=== PATIENT | female | born 1970 | race Caucasian/White ===

== ENCOUNTER 2020-03-13 11:20 | Outpatient (CLI) | payer BC, SELFPAY ==
--- NOTE | 2020-03-13 11:50 | ECG_ITS ---
Measurements Intervals Dozier Rate: 74 P: 57 NE: 145 QRS: 53 QRSD: 92 T: 37 QT: 375 QTc: 417 SINUS RHYTHM WITH SINUS ARRHYTHMIA POSSIBLE LEFT ATRIAL ENLARGEMENT [-0.1mV P WAVE IN V1/V2] INTERPRETATION BASED ON A DEFAULT AGE OF 40 YEARS No previous ECG available for comparison Electronically Signed On 03-13-2020 16:36:59 CDT by Konstantin Arroyo M.D. [id number]
[2020-03-13 11:52] LABS: Basophils % 0.2 %; Eosinophils % 0.5 %; Hematocrit 40.7 % (37.0-47.0); Hemoglobin 13.7 g/dL (11.5-15.3); Lymphocytes # 1.4 10^3/uL (0.8-4.8); Lymphocytes % 24.3 %; Mean Corpuscular HGB Conc 33.7 g/dL (30.0-36.0); Mean Corpuscular Hemoglobin 29.8 pg (28.0-34.0); Mean Corpuscular Volume 88.7 fL (81-99); Mean Platelet Volume 11.1 fL (7.4-10.4); Monocytes # 0.4 10^3/uL (0.2-0.9); Monocytes % 6.5 %; Neutrophils % 68.5 %; Nucleated Red Blood Cells % 0 %; Platelet Count 204 10^3/cmm (130-400); Red Blood Count 4.59 10^6/uL (4.1-5.3); Red Cell Distribution Width 12.9 % (12.1-15.1); White Blood Count 5.8 10^3/uL (4.0-10.0)
[2020-03-13 12:10] LABS: Blood Urea Nitrogen 15 mg/dL (6-20); Calcium 10.4 mg/dL (8.5-10.5); Carbon Dioxide 31 mmol/L (22-29); Chloride 99 mmol/L (98-107); Glucose 101 mg/dL (65-115); Osmolality Calculated 286 mOsm/kg (285-295); Sodium 140 mmol/L (136-145)
== END 2020-03-13 11:21 | disposition home or self-care (01) ==
LOC: RT 11:23
PROVIDERS: PCP Family Medicine; Visit Provider Specialist
DX: Z01.89 Encounter for other specified special examinations (principal)
CPT/HCPCS: 36415; 80048; 85025; 93005

== ENCOUNTER → 2020-11-21 08:50 | Outpatient (BNVA) | payer OTHER, SELFPAY | PROVIDERS: PCP Family Medicine; Visit Provider Obstetrics & Gynecology | DX: Z01.419 Encounter for gynecological examination (general) (routine) without abnormal findings (principal); N32.81 Overactive bladder; N83.201 Unspecified ovarian cyst, right side | CPT/HCPCS: 80061; 83001; 83036; 84315 ==

== ENCOUNTER 2020-12-05 13:38 | Outpatient (CLI) | payer OTHER, SELFPAY ==
--- NOTE | 2020-12-05 14:00 | MM_ITS ---
WS: [id number] BILATERAL DIGITAL SCREENING MAMMOGRAPHY WITH CAD CLINICAL INFORMATION: Z12.39 - Encounter for other screening for malignant neoplasm of breast HISTORY: Screening mammogram. No current complaints. COMPARISON: TECHNIQUE: Bilateral CC and MLO views. FINDINGS: The breasts are composed of heterogeneous fibroglandular density tissue, which can limit the detectio n of small underlying mass lesions. New ovoid lesion posterior depth right breast near the 1100-12:00 position. Recommend further evaluation with spot diagnostic mammography and ultrasound. Left breast is unremarkable and unchanged. MM/[place] [id number] IMPRESSION: BI-RADS: 0-Incomplete: Need additional imaging evaluation FOLLOW UP: Need Additional Imaging RECOMMEND RIGHT DIAGNOSTIC MAMMOGRAPHY AND ULTRASOUND.
== END 2020-12-05 13:39 | disposition home or self-care (01) ==
LOC: RADSHAW 13:40
PROVIDERS: PCP Family Medicine; Visit Provider Obstetrics & Gynecology
DX: Z12.31 Encounter for screening mammogram for malignant neoplasm of breast (principal); N64.89 Other specified disorders of breast
CPT/HCPCS: 77067

== ENCOUNTER 2021-01-15 09:11 | Outpatient (CLI) | payer OTHER, SELFPAY ==
--- NOTE | 2021-01-15 09:18 | US_ITS ---
WS: [id number] RIGHT DIGITAL MAMMOGRAPHY WITH CAD CLINICAL INFORMATION: Right breast ovoid lesion HISTORY: COMPARISON: None. TECHNIQUE: 4 views of the right breast were obtained. FINDINGS: The right breast is composed of heterogeneous fibroglandular density tissue, which can limit the dete ction of small underlying mass lesions. Again seen is the 6 mm ovoid lesion posterior depth right breast near the 12:00 position. This persis ts on spot compression views. Ultrasound is pending. ULTRASOUND BREAST RIGHT TECHNIQUE: Ultrasound right breast focused area of concern. CLINICAL INFORMATION: Right breast ovoid lesion COMPARISON: None. FINDINGS: Ultrasound right breast at the 11:00 position 1 cm from the nipple. Small hypoechoic lesion with thro ugh-transmission appears partially cystic. This measures 5.2 x 7.3 x 5.0 mm. This is probably benign and recommend 6 month follow-up US/US breast RT limited* [id number] IMPRESSION: BI-RADS: 3-Probably Benign FOLLOW UP: 6 Month Follow-up RECOMMEND 6 MONTH FOLLOW-UP RIGHT BREAST WITH RIGHT DIAGNOSTIC MAMMOGRAPHY AND ULTRASOUND.
--- NOTE | 2021-01-15 09:30 | MM_ITS ---
WS: [id number] RIGHT DIGITAL MAMMOGRAPHY WITH CAD CLINICAL INFORMATION: Right breast ovoid lesion HISTORY: COMPARISON: None. TECHNIQUE: 4 views of the right breast were obtained. FINDINGS: The right breast is composed of heterogeneous fibroglandular density tissue, which can limit the dete ction of small underlying mass lesions. Again seen is the 6 mm ovoid lesion posterior depth right breast near the 12:00 position. This persis ts on spot compression views. Ultrasound is pending. ULTRASOUND BREAST RIGHT TECHNIQUE: Ultrasound right breast focused area of concern. CLINICAL INFORMATION: Right breast ovoid lesion COMPARISON: None. FINDINGS: Ultrasound right breast at the 11:00 position 1 cm from the nipple. Small hypoechoic lesion with thro ugh-transmission appears partially cystic. This measures 5.2 x 7.3 x 5.0 mm. This is probably benign and recommend 6 month follow-up MM/[place] [id number] IMPRESSION: BI-RADS: 3-Probably Benign FOLLOW UP: 6 Month Follow-up RECOMMEND 6 MONTH FOLLOW-UP RIGHT BREAST WITH RIGHT DIAGNOSTIC MAMMOGRAPHY AND ULTRASOUND.
== END 2021-01-15 09:12 | disposition home or self-care (01) ==
LOC: RADSHAW 09:12
PROVIDERS: PCP Family Medicine; Visit Provider Obstetrics & Gynecology
DX: N64.89 Other specified disorders of breast (principal)
CPT/HCPCS: 76642; 77065

== ENCOUNTER 2022-03-10 07:55 | Outpatient (CLI) | payer OTHER, SELFPAY ==
--- NOTE | 2022-03-10 08:09 | US_ITS ---
WS: [id number] Right breast ultrasound, 03/10/2022 Clinical Data: R92.8 - Other abnormal and inconclusive findings on diagn... Comparison: Right breast ultrasound, 01/15/2021 Findings: The right breast shows 2 cystic areas in the areola. At 11:00 1 cm from the areola there is a 0.26 x 0.42 x 0.59 simple cyst. At the 12:00 region 1 cm from the nipple there is a simple cyst measuring 0. 25 x 0.29 x 0.32 cm. US/US breast RT limited* [id number] Impression: 1. 2 simple cysts in the region of the right areola. 2. Recommend annual screening mammograms. BIRADS: 1-Negative FOLLOW UP: 1 Year Follow-up
--- NOTE | 2022-03-10 08:09 | MM_ITS ---
WS: [id number] Bilateral diagnostic 3D tomosynthesis digital mammogram, 03/10/2022 Clinical Data: R92.8 - Other abnormal and inconclusive findings on diagn... Comparison: 01/15/2021, 12/05/2020, 07/14/2018. Findings: The breasts show heterogeneous density. The nodule which was described before at the 12:00 position i n the right breast on the MLO view is not imaged on today's examination. No spiculated masses or clus tered calcifications are seen. There are lymph nodes in the left axilla. MM/[place] [id number] Impression: 1. Negative bilateral mammograms. 2. The nodule seen on the prior study is not seen on today's study. 3. Recommend annual screening mammograms. BIRADS: 1-Negative FOLLOW UP: 1 Year Follow-up The CAD coloring checker was used.
== END 2022-03-10 07:56 | disposition home or self-care (01) ==
PROVIDERS: PCP Family Medicine; Visit Provider Obstetrics & Gynecology
DX: R92.8 Other abnormal and inconclusive findings on diagnostic imaging of breast (principal)
CPT/HCPCS: 76642; 77062

== ENCOUNTER → 2022-07-13 08:19 | Outpatient (BNVA) | payer OTHER, SELFPAY | PROVIDERS: PCP Family Medicine; Referring Provider Family Medicine; Visit Provider Orthopaedic Surgery | DX: M47.22 Other spondylosis with radiculopathy, cervical region (principal) | CPT/HCPCS: 72050 ==

== ENCOUNTER 2022-08-03 06:00 | Outpatient (RCR) | payer OTHER, SELFPAY | END 2022-08-09 23:59 | disposition home or self-care (01) | LOC: SPT 06:00 | PROVIDERS: PCP Family Medicine; Visit Provider Orthopaedic Surgery | DX: M54.2 Cervicalgia (principal) | CPT/HCPCS: 97161 ==

== ENCOUNTER 2022-08-10 06:00 | Outpatient (RCR) | payer OTHER, SELFPAY | END 2022-09-08 23:59 | disposition home or self-care (01) | LOC: SPT 06:00 | PROVIDERS: PCP Family Medicine; Visit Provider Orthopaedic Surgery | DX: M54.2 Cervicalgia (principal) | CPT/HCPCS: 97110; 97140 ==

== ENCOUNTER 2022-09-09 06:00 | Outpatient (RCR) | payer OTHER, SELFPAY | END 2022-10-09 23:59 | disposition home or self-care (01) | LOC: SPT 06:00 | PROVIDERS: PCP Family Medicine; Visit Provider Orthopaedic Surgery | DX: M54.2 Cervicalgia (principal); M25.512 Pain in left shoulder; M25.511 Pain in right shoulder | CPT/HCPCS: 97110; 97140 ==

== ENCOUNTER 2022-09-23 08:22 | Outpatient (CLI) | payer OTHER, SELFPAY ==
--- NOTE | 2022-09-23 08:39 | XRR_ITS ---
PROCEDURE INFORMATION: Exam: XR Sacrum and Coccyx, 2 or More Views Exam date and time: 09/23/2022 8:47 AM Age: 52 years old Clinical indication: Pain in coccyx area; Patient HX: Pain , no falls or injuries reported; Additional info: Coccyx pain TECHNIQUE: Imaging protocol: XR of the sacrum and coccyx, 2 or more views. COMPARISON: CT abdomen pelvis w con* [id number] 02/06/2017 7:33 PM FINDINGS: Bones/joints: Normal. No acute fracture or deformity. No underlying bone lesion detected. Soft tissues: Multiple small rounded calcifications in the pelvis presumed to represent phleboliths.. XR/XR coccyx 2V [id number] IMPRESSION: Negative exam.
== END 2022-09-23 08:23 | disposition home or self-care (01) ==
PROVIDERS: PCP Family Medicine; Visit Provider Family Medicine
DX: M53.3 Sacrococcygeal disorders, not elsewhere classified (principal)
CPT/HCPCS: 72220

== ENCOUNTER 2022-10-12 08:27 | Outpatient (CLI) | payer OTHER, SELFPAY ==
--- NOTE | 2022-10-12 08:45 | MR_ITS ---
WS: [id number] MRI LEFT SHOULDER NONCONTRAST TECHNIQUE: Sagittal T2, coronal T1, T2 and proton density imaging. Axial gradient PDE imaging. CLINICAL INFORMATION: shoulder pain COMPARISON: None. FINDINGS: Moderate degenerative arthritis AC joint with mild edema. Mild downsloping acromion. Impingement on t he distal supraspinatus. Tendinopathy in the distal supraspinatus. Lobulated ganglion cyst deep to th e AC joint measuring 1.4 x 0.7 x 0.5 cm. Mild mass effect on the underlying supraspinatus. Chronic th inning of the distal supraspinatus. Normal infraspinatus. Normal subscapularis. Biceps tendon appears intact within the bicipital groove. Biceps labral anchor appears intact. Advanced degenerative arthr itis at the glenohumeral joint with hypertrophic changes. Subcoracoid effusion. MR/MR shoulder LT wo con* [id number] IMPRESSION: 1. Moderate degenerative arthritis AC joint with impingement on the distal sup raspinatus. 2. Lobulated ganglion cyst deep to the AC joint measuring 1.4 x 0.7 x 0.5 cm w ith slight impingement on the underlying supraspinatus tendon. 3. Tendinopathy distal supraspinatus. 4. Rotator cuff is otherwise intact. 5. Normal biceps tendon in the bicipital groove. 6. Subcoracoid effusion.
--- NOTE | 2022-10-12 09:30 | MR_ITS ---
WS: [id number] MRI RIGHT SHOULDER NONCONTRAST TECHNIQUE: Sagittal T2, coronal T1, T2 and proton density imaging. Axial gradient PDE imaging. CLINICAL INFORMATION: shoulder pain COMPARISON: Outside MRI March 14, 2020 FINDINGS: Moderate degenerative arthritis at the AC joint. Mild downsloping of the acromium. Slight subacromial spurring. Synovial thickening at the AC joint. Small amount of subacromial/subdeltoid fluid. Impinge ment on the distal supraspinatus with tendinopathy in the distal supraspinatus. Small partial thickne ss undersurface tear. Tendinopathy and partial-thickness tear appears new compared to previous. Normal infraspinatus. Normal teres minor. Normal subscapularis. Normal biceps tendon in the bicipital groove. Advanced degenerative arthritis glenohumeral joint with hypertrophic changes. Subchondral cy stic change involving the greater tuberosity. Biceps labral anchor appears intact. Degenerative frayi ng of the glenoid labrum. Small amount of subcoracoid fluid. MR/MR shoulder RT wo con* [id number] IMPRESSION: 1. Moderate degenerative arthritis AC joint with mild downsloping acromion. Sm all amount of subacromial/subdeltoid fluid. 2. Tendinopathy in the distal supraspinatus with partial undersurface tear. Th is appears new from previous. No tendon retraction. 3. Rotator cuff is otherwise normal in appearance. 4. Normal biceps tendon in the bicipital groove. 5. Moderate to advanced degenerative arthritis glenohumeral joint with hypertr ophic changes. 6. Biceps tendon appears intact within the bicipital groove. Biceps labral anc hor appears intact.
== END 2022-10-12 08:28 | disposition home or self-care (01) ==
LOC: RAD 08:28
PROVIDERS: PCP Family Medicine; Visit Provider Orthopaedic Surgery
DX: M19.011 Primary osteoarthritis, right shoulder (principal); M75.101 Unspecified rotator cuff tear or rupture of right shoulder, not specified as traumatic; M19.012 Primary osteoarthritis, left shoulder; M25.412 Effusion, left shoulder
CPT/HCPCS: 73221

== ENCOUNTER 2022-10-12 08:27 | Outpatient (CLI) | payer OTHER, SELFPAY ==
--- NOTE | 2022-10-12 10:15 | MR_ITS ---
WS: [id number] MRI CERVICAL SPINE NONCONTRAST TECHNIQUE: Sagittal T1, T2 and STIR imaging. Axial T2, gradient, and fiesta imaging. CLINICAL INFORMATION: neck pain COMPARISON: MRI 03/14/2020 FINDINGS: Straightening of the normal cervical lordosis. Disc bulging worse at C3-C4 C5-C6. Cord signal is norm al. C2-C3: Normal. C3-C4: Mild disc bulging with slight effacement of ventral thecal sac. Mild central canal stenosis. M ild facet arthropathy. Mild bilateral bony foraminal narrowing. C4-C5: Mild disc osteophyte complex endplate ridging. Moderate facet arthropathy. Mild LEFT greater t lomeli RIGHT bony foraminal narrowing. C5-C6: Shallow central disc protrusion with slight indentation on cervical cord. Mild to moderate baldemar tral canal stenosis. Moderate facet arthropathy. Moderate RIGHT and mild LEFT bony foraminal narrowin g. C6-C7: Minimal disc osteophyte complex. Slight effacement of the ventral thecal sac. Mild LEFT and no significant RIGHT foraminal narrowing. Mild facet arthropathy. C7-T1: Mild LEFT and no RIGHT foraminal narrowing. Spinal canal is patent. Visualized brain stem structures: Normal. Prevertebral soft tissues: Normal. MR/MR cervical spin wo con* [id number] IMPRESSION: 1. Disc bulging worse at C3-C4 and C5-C6. 2. Mild central canal stenosis C3-C4 and mild to moderate central canal stenos is C5-C6 with a small central disc protrusion. Slight indentation on cervical c ord at C5-C6. This appears unchanged since March 14, 2020. 3. Mild to moderate bony foraminal narrowing worse at LEFT C4-C5, RIGHT C5-C6. 4. Mild to moderate facet arthropathy C3-C4 C4-C5 and C5-C6.
== END 2022-10-12 08:28 | disposition home or self-care (01) ==
LOC: RAD 08:28
PROVIDERS: PCP Family Medicine; Visit Provider Family Medicine
DX: M50.21 Other cervical disc displacement, high cervical region (principal); M48.02 Spinal stenosis, cervical region; M47.812 Spondylosis without myelopathy or radiculopathy, cervical region
CPT/HCPCS: 72141

== ENCOUNTER → 2022-11-15 14:18 | Outpatient (BNVA) | payer OTHER, SELFPAY | PROVIDERS: PCP Family Medicine; Visit Provider Student in an Organized Health Care Education/Training Program | DX: M25.511 Pain in right shoulder (principal); M25.512 Pain in left shoulder; M75.41 Impingement syndrome of right shoulder; M75.42 Impingement syndrome of left shoulder; M19.011 Primary osteoarthritis, right shoulder; M19.012 Primary osteoarthritis, left shoulder; M71.312 Other bursal cyst, left shoulder; M75.22 Bicipital tendinitis, left shoulder; G56.03 Carpal tunnel syndrome, bilateral upper limbs | CPT/HCPCS: 73030 ==

== ENCOUNTER 2022-12-21 07:58 | Day surgery (SDC) | payer OTHER, SELFPAY ==
[2022-12-20 09:17] VITALS: BMI 25.8
[2022-12-21] VITALS (8 sets, daily range): BP systolic 116–159; BP diastolic 76–92; PULSE 77–100; RESP 17–18; TEMP 36.1–36.9; O2SAT 95–99
[2022-12-21] MEDS: sodium chloride 0.9% 1,000 ML 30 ML IV (08:27)
[2022-12-21] MEDS: acetaminophen 1,000 MG/100 ML PIGGYBACK 400 MG IV (08:32)
[2022-12-21] MEDS: ketorolac 30 mg/mL INJ IVP (08:33)
--- NOTE | 2022-12-21 08:41 | P.HPUD_ITS ---
Surgery/Procedure H&P Update DATE OF PROCEDURE: December 21, 2022 DATE H&P PERFORMED: 12/16/22 CHANGES TO PREVIOUS DOCUMENTATION: None. PREOP DIAGNOSIS: Left carpal tunnel syndrome, left shoulder AC arthritis, impingement, bicep PRIMARY INDICATION FOR PROCEDURE: Patient has left carpal tunnel syndrome Left shoulder AC joint arthritis, left shoulder subacromial impingement, biceps tendinitis, subacromial cyst He has been worked up in the outpatient setting and is consistent with preoperative diagnosis. She continues to have numbness and tingling in her left fingers in the median nerve distribution she has been worked up from her C-spine and received a injection and this provided no relief of her nerve symptoms. On examination classic carpal tunnel symptomatology. Would recommend a left carpal tunnel release for this per her request while she is already under anesthetic for a left shoulder diagnostic and surgical arthroscopy. Patient understands and agrees with current plan. All questions answered. Understands risk benefits complication alternatives to treatment options understanding risk of surgery she agrees to proceed. PLANNED PROCEDURE: Operation Date: 12/21/22 09:30 Proposed Procedures p Left shoulder Diagnostic and surgical [id number],M75.41; M75.42,M19.011; M19.012,M71.312,M75.22(Left) - Lm Laci, DO s with subacromial [id number](Left) - Lm Orange, DO s acromioclavicular joint [id number](Left) - Lm Orange, DO s with possiblebiceps tenotomy 22168(Left) - Lm Laci, DO s and possible rotator cuff repair.25676(Left) - Lm Orange, DO s left carpal tunnel release 05997,G56.03(Left) - Lm Orange, DO
--- NOTE | 2022-12-21 09:05 | P.ANESASSM_ITS ---
Pre-Anesthetic Assessment Height/Weight: Height 1.78 m Weight 81.647 kg Temp Pulse Resp BP Pulse Ox O2 Del Method 97 F L 84 18 147/89 96 12/21/22 08:17 12/21/22 08:17 12/21/22 08:17 12/21/22 08:17 12/21/22 08:17 12/21/22 08:25 Preop Diagnosis: Left carpal tunnel syndrome, left shoulder AC arthritis, impingement, bicep Operation Date: 12/21/22 09:30 Proposed Procedures p Left shoulder Diagnostic and surgical [id number],M75.41; M75.42,M19.011; M19.012,M71.312,M75.22(Left) - Lm Sangamon, DO s with subacromial [id number](Left) - Lm Laci, DO s acromioclavicular joint [id number](Left) - Lm Laci, DO s with possiblebiceps tenotomy 09681(Left) - Lm Laci, DO s and possible rotator cuff repair.83662(Left) - Lm Sangamon, DO s left carpal tunnel release 28493,G56.03(Left) - Lm Laci, DO Familial anesthetic complications: none Was Beta Nishant taken within 24 hours: N/A Was Clonidine taken within 24 hours: N/A Last intake: Intake Last Liquid Date 12/20/22 Last Liquid Time 19:30 Last Solid Date 12/20/22 Last Solid Time 19:30 Social No alcohol and No tobacco Exam alert, oriented x 3, clear to auscultation bilaterally and regular rate & rhythm Airway Submandibular: within normal limits Cervical ROM: within normal limits Mallampati: Class II Dentition: full Musc/skel Osteoarthritis/DJD Anesthetic Plan ASA status: 2 Anesthesia: General and Regional (specify below) (left interscalene nerve blk) Medications/Allergies Home Medications Medication Instructions Recorded Confirmed Last Taken Type diazepam 5 mg tablet (Valium) 5 mg PO BID PRN Anxiety 08/03/22 12/20/22 12/19/22 History fluoxetine 10 mg capsule (Prozac) 10 mg PO QAM #90 caps 09/29/22 12/20/22 12/20/22 Rx tramadol 50 mg tablet 50 mg PO BID PRN pain #45 tabs 10/27/22 12/20/22 12/19/22 Rx acetaminophen 300 mg-codeine 30 mg 1 tab PO TID PRN pain #90 tabs 12/07/22 12/20/22 12/20/22 Rx tablet Allergies Allergy/AdvReac Type Severity Reaction Status Date / Time No Known Allergies Allergy Verified 12/20/22 09:15 Current Medications Generic Name Dose Route Start Last Admin Trade Name Freq PRN Reason Stop Dose Admin Sodium Chloride 1,000 mls @ 30 mls/hr 12/21/22 08:15 12/21/22 08:27 Sodium Chloride 0.9% IV 12/22/22 08:14 30 mls/hr .Q24H JULIANNE Administration PFSH Anesthesia Medical History Arthritis of both acromioclavicular joints Biceps tendinitis of left shoulder Impingement syndrome of both shoulders Right ovarian cyst 49-year-old female with right ovarian cyst. Ova-1 test low risk. FSH within normal limits. Patient was counseled regarding ovarian cyst. Discussed the ultrasound finding essentially benign and a follow-up ultrasound indicated in 2-3 months. There is a broad differential diagnosis of an adnexal mass in women of reproductive age. These include physiologic cysts, endometriomas, and leiomyomas. Ovarian or tubal malignant neoplasms are uncommon. Common benign neoplasms include mature teratomas and cystadenomas. Serous and mucinous cystadenomas are among the most common benign ovarian neoplasms. They are thin-walled, uni- or multilocular, and range in size from 5 to <20 cm. By the US appearance and description this is the most likey etiology. An adnexal mass this size require surgical removal for pathologic diagnosis and decrease the risk of ovarian torsion. Surgical excision is generally indicated for intervention for cysts that are complex, symptomatic, increasing in size, or persisting for more than four to six months. Family History Unknown Diabetes Family/Other Diabetes Paternal uncle Stroke Paternal uncle Patient denies medical problems Patient denies any family history of heart disease,hypercholesterolemia, thryoid problems, breast cancer, ovarian cancer, uterine cancer, colon cancer. Mother Hypertension Father Hypertension Social History Smoking and tobacco status: never smoked Alcohol intake: current Alcohol intake frequency: holidays/special occasions only Additional social history: Well balanced diet Data Anesthesia Cardiac Studies: No Data to Display
[2022-12-21] MEDS: ceFAZolin 2,000 MG in sodium chloride 0.9% (plus) 50 ML 100 MG IV (09:54)
--- NOTE | 2022-12-21 10:12 | ANES.PROC ---
Anesthesia Procedures Procedure/Date: 12/21/22 Nerve Block ^: Nerve Block 1: Main Anesthesia: general anesthesia Time Out Performed: Yes Consent: requested by attending/covering physician, from patient, risks and benefits reviewed and patient agrees to proceed Nerve block location: interscalene (left) Anesthesia monitors applied: pulse oximetry, EKG, BP cuff and oxygen Nerve block position: semi sitting Anesthetic Used: ropivicaine 0.5% Amount of anesthesia used (mL): 30 Ultrasound used to: recognize landmarks and visualize and ID brachial plexus Nerve Stimulator Used?: No Interscalene/Femoral BLK: 2 stimuplex 22 g needle used for position and inplane approach Injection: neg aspiration of heme Patient Tolerated Procedure: well Complications: none
[2022-12-21] MEDS: EPINEPHrine 1 mg/mL INJ 2 MG XX (10:39)
[2022-12-21] MEDS: lidocaine-epi 1% 20 mL INJ INJECTION (11:40)
--- NOTE | 2022-12-21 12:10 | P.OP_ITS ---
Brief Operative Note Date of procedure: 12/21/22 Pre-op diagnosis: Left shoulder AC joint arthritis, subacromial impingement, s ubacromial cyst Post-op diagnosis: same (Left carpal tunnel syndrome, partial rotator cuff tear, glenohumeral chondromalacia) Procedure Done: Left shoulder diagnostic and surgical arthroscopy acromioclavicular joint resection Left shoulder diagnostic and surgical arthroscopy glenohumeral joint debridement and chondroplasty Left shoulder diagnostic and surgical arthroscopy rotator cuff debridement Left shoulder diagnostic and surgical arthroscopy subacromial decompression and cyst decompression Left carpal tunnel release Surgeon: Lm Aguero Estimated blood loss (mL): 10 Complications: None Post-op Plan: Patient taken to PACU in stable condition recovering well. Patient receive appropriate discharge structure as well as pain medication postoperatively. We will follow-up with me in the office in 2 weeks. Will be allowed to weight-bear as tolerated left upper extremity sling on in place. Contact the office for any questions or concerns Condition: stable Disposition: same day Coding Level of Care Code Acute Code for Randal Pike
--- NOTE | 2022-12-21 12:13 | PM.PACU ---
PACU note Narrative: Patient taken to PACU in stable condition recovering well. Patient's dressing on in place clean dry and intact sling on in place left shoulder. Distal pulses palpable hand warm well perfused. Compartment soft compressible. Patient received regional anesthesia unable assess motor or sensory at this time. Exam: awake Disposition: discharged
--- NOTE | 2022-12-21 12:14 | P.OP_ITS ---
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 Left shoulder partial rotator cuff tear articular side Left shoulder AC joint arthritis Left shoulder subacromial impingement Left shoulder AC/subacromial cyst Procedure done: Left carpal tunnel release Left shoulder diagnostic and surgical arthroscopy glenohumeral joint chondroplasty Left shoulder diagnostic and surgical arthroscopy rotator cuff debridement Left shoulder diagnostic and surgical arthroscopy subacromial decompression (acromioplasty and bursectomy) Left shoulder diagnostic and surgical arthroscopy AC joint resection Left shoulder diagnostic and surgical arthroscopy with cyst AC/subacromial cyst decompression Surgeon: Lm Aguero DO Estimated blood loss: 10 9 minutes for left carpal tunnel release IV fluids: 700 mL Complications: None Findings: See operative report narrative Condition: stable Disposition: same day Procedure: Brief History: Patient been seen and worked up in the outpatient setting for left shoulder pain and Left hand numbness and tingling. Patient's had exhaustive work-up of her C- spine's underwent injections for this which helped with her neck pain however it has not helped with her shoulder pain or numbness and tingling in her fingertips classic examination of carpal tunnel syndrome for her numbness and tingling. Patient's had MRI of the bilateral shoulders. Left shoulder MRI results are listed below.? Patient's failed conservative treatment. We talked about treatment options far as nonoperative and operative intervention..? We talked about risk benefits complication alternatives surgical nonsurgical treatment options.? Patient at this point time through shared decision making like to proceed with a left shoulder diagnostic and surgical arthroscopy as well as whil bessie under anesthesia would like to have the left carpal tunnel released. Through shared decision making agreed to proceed with this plan. All questions answered. Understanding her risk of surgery she agrees to proceed with surgical intervention.? All questions have been answered at this time.? Patient elects proceed with surgery and consent obtained in office. MR/MR shoulder LT wo con* [id number] IMPRESSION: ? 1.? Moderate degenerative arthritis AC joint with impingement on the distal supraspinatus. 2.? Lobulated ganglion cyst deep to the AC joint measuring 1.4 x 0.7 x 0.5 cm with slight impingement on the underlying supraspinatus tendon. 3.? Tendinopathy distal supraspinatus. 4.? Rotator cuff is otherwise intact. 5.? Normal biceps tendon in the bicipital groove. 6.? Subcoracoid effusion. ? . Procedure: Patient seen evaluated in the preoperative holding area.? Consent reviewed and signed with patient.? Once again reviewed patient's MRI results as well as? planned surgical intervention.? Correct extremity marked.? Patient seen evaluated by anesthesia department received regional anesthesia.? Once ready for surgery was taken back to the operative suite.? Patient then subsequently underwent anesthesia per the anesthesia department was transported onto the OR table.? Patient was then placed into a lateral decubitus position with a beanbag and was appropriately secured to the bed.? All bony prominences well-padded.? Patient then had the left upper extremity was then prepped and draped in standard orthopedic fashion.? Patient received appropriate preoperative antibiotics.? Final timeout performed. The left upper extremity was then held in hanging from traction utilizing sterile technique.? Next started with standard diagnostic and surgical arthroscopy with posterior portal position introduced arthroscope into the glenohumeral joint.? Visualized the glenohumeral joint I then introduced a spinal needle within the rotator cuff interval to confirm appropriate anterior portal placement.? Once this was confirmed I then made my small incision and then introduced my arthroscopic shaver into the glenohumeral joint.? After thorough debridement was clearly evident patient had a intact biceps tendon and labral complex with no evidence of tearing or inflammation biceps tendon was left alone. Was clearly evident patient had grade III chondromalacia in the glenohumeral joint most pronounced on the humeral head. As result arthroscopic shaver and thermal wand introduced and a chondroplasty of the glenohumeral joint was performed to stable articular tissue. Visualization of the labrum was grossly intact with just slight fraying throughout. Thermal wand was used to seal up the frayed edges of the labrum. Next Axillary recess was free from loose bodies.? ?Next a visualized the rotator cuff superiorly and there was found negative escape bubble sign as bubbles resided without perforating into the subacromial space however the undersurface articular side showed significant tearing consistent with a partial articular surface rotator cuff tear and used arthroscopic shaver and performed a rotator cuff debridement of the undersurface at this time. ? This completed my work within the glenohumeral joint all fluid was suctioned free of the joint.? ?Next I reintroduced the arthroscope posteriorly.? And went to the subacromial space.? I established my lateral working portal.? Thermal wand was then introduced laterally and then I subsequently performed extensive bursectomy of the subacromial space.? Patient had pronounced anterior bone spur.? At this point time I proceeded with my AC joint resection thermal wand was used and track to the anterior edge of the acromion and then tracked all the way to the AC joint.? Once identified the AC joint this was very arthritic in nature.? Thermal wand was placed anteriorly to establish appropriate plane for AC joint resection.? Once appropriate margins and anterior inferior and anterior capsule was released I then introduced arthroscopic shaver and a bur and performed AC joint resection of both the acromion to coplane at the AC joint and a distal clavicle resection was then performed totaling 1 cm in size and was confirmed.? This completed my AC joint resection and I then introduced the arthroscopic shaver laterally while continuing to view posteriorly.? I then performed an acromioplasty to complete my subacromial decompression prior to fixing the rotator cuff tear.? ?Next the arthroscopic shaver was then introduced laterally at this point time completed my subacromial bursectomy as well as cyst decompression there was lobulated cyst just adjacent to the AC joint and the subacromial space this was completely decompressed. 60 pression. With complete bursectomy performed I then utilized the arthroscopic bur to perform acromioplasty and coplaning of the anterior bone spur. Next I then visualized the rotator cuff and took the shoulder through range of motion which was found to be intact. I then switched my arthroscopic viewing portal through the lateral portal to confirm appropriate acromioplasty and finalized touches were then performed of the acromioplasty and bursectomy at that time. Once again visualize rotator cuff and this was intact. This completed my diagnostic and surgical arthroscopy of the left shoulder. All fluid was suctioned from the shoulder.? All instruments were removed.? The lateral incision was then closed with nylon stitches.? As well as the portal sites closed with portal nylon stitches.? Xeroform 4 x 4's ABD and tape was then applied to the left shoulder. All drapes were completely taken down. At this point in time an armboard was applied to the left arm with plan for proceeding with left carpal tunnel release. Beanbag was deflated patient was laid in supine position left arm to the armboard. Patient bed was then rotated a nonsterile tourniquet applied to the left upper arm. Patient's left upper extremity was then prepped and draped in standard orthopedic fashion.? Final timeout performed.? Patient received appropriate preoperative antibiotics. Under sterile aseptic technique patient received local anesthesia over the preplanned carpal tunnel incision site.? Esmarch tourniquet was used exsanguinate the left upper extremity and tourniquet was insufflated to 250 mmHg. A standard mini open carpal tunnel incision was made.? Starting distally at Calles's cardinal line in line with the fourth ray extending proximally distal to the wrist crease.? Sharp scalpel incision was made through skin and subcutaneous tissue.? Self-retaining retractor was placed and the palmar fascia was identified.? This was then split longitudinally and direct visualization of the transverse carpal ligament was then made.? I then utilizing scalpel feathered through the transverse carpal ligament until I entered the floor of the transverse carpal tunnel ligament into the carpal tunnel.? Next I switched to dissection scissors and completed my release of the transverse carpal ligament distally with care to protect the recurrent motor branch.? I completely released into the palmar fat and until no entrapment was noted distally.? Care was made to protect the superficial palmar arch during my distal dissection.? Next I then placed a [place] underneath the transverse carpal tunnel ligament to protect the contents of the carpal tunnel and subsequently utilizing dissection scissors under loupe magnification completely released the transverse carpal ligament proximally into the median antebrachial fascia.? Care was made to protect the palmar cutaneous branch by keeping my scissors curved ulnarly.? Once completely released, I then placed my [place] and had appropriate decompression of the carpal tunnel proximally as well as distally.? I then inspected the contents of the carpal tunnel which showed an hourglass shape of the median nerve showing its compression.? No masses were noted.? Tendons appeared healthy.? Wound was then thoroughly irrigated.? Tourniquet deflated.? Hemostasis satisfactory with bipolar electrocautery.? I then closed the incision with interrupted nylon stitches.? Xeroform 4 x 4's and a bulky soft dressing was applied to the left upper extremity as well as sling to the left shoulder.? Patient was then awakened from anesthesia and taken to PACU in stable condition.? Patient jorge erated procedure without complications. Disposition: Patient taken to PACU in stable condition recovering well.? Dressing clean dry and intact.? Patient will receive appropriate discharge instructions as well as pain medication postoperatively.? Patient to follow-up with me in the office in 2 weeks.? They understand they may be weightbearing as tolerated to the left upper extremity. Sling for comfort..? Patient should keep incision clean dry and intact.? Patient understands if any questions or concerns he may contact the office.
[2022-12-21] MEDS: HYDROcodone-acetaminophen 5-325 mg Tablet 1 TAB PO (12:43)
--- NOTE | 2022-12-21 14:03 | ANE.PACU2 ---
Inpatient post-anesthesia follow up: Airway intact: Yes Vital signs: Temperature 97 F Pulse Rate 81 Respiratory Rate 18 Blood Pressure 116/76 Pulse Oximetry 99 Oxygen Delivery Me thod Room Air Oxygen Flow Rate Fraction of Inspir ed Oxygen Hydration adequate: Yes Nausea and vomiting: No Pain level: 1 Mental status: Baseline
== END 2022-12-21 13:10 | disposition home or self-care (01) ==
PROVIDERS: PCP Family Medicine; Visit Provider Student in an Organized Health Care Education/Training Program
PROC: (CPT 29805; principal; 2022-12-21 09:20)
PROC: (CPT 29826; 2022-12-21 09:20)
PROC: 0RSH0ZZ Reposition Left Acromioclavicular Joint, Open Approach (ICD-10-PCS; CPT 23405; 2022-12-21 09:20)
PROC: 0LQ24ZZ Repair Left Shoulder Tendon, Percutaneous Endoscopic Approach (ICD-10-PCS; CPT 29827; 2022-12-21 09:20)
PROC: (CPT 64721; 2022-12-21 09:20)
DX: M75.41 Impingement syndrome of right shoulder (principal); M75.42 Impingement syndrome of left shoulder; M71.312 Other bursal cyst, left shoulder; M19.011 Primary osteoarthritis, right shoulder; M19.012 Primary osteoarthritis, left shoulder; G56.02 Carpal tunnel syndrome, left upper limb
CPT/HCPCS: 23405; 23410; 23550; 29826; 64721; J0131; J0171; J0690; J1100; J1200; J1885; J2250; J2405; J2704; J2710; J2795; J3010; J3490; J7030

== ENCOUNTER 2023-01-25 06:00 | Outpatient (RCR) | payer OTHER, SELFPAY | END 2023-02-06 23:59 | disposition home or self-care (01) | LOC: SPT 06:00 | PROVIDERS: Visit Provider Student in an Organized Health Care Education/Training Program | DX: Z47.89 Encounter for other orthopedic aftercare (principal); Z98.890 Other specified postprocedural states | CPT/HCPCS: 97110; 97162 ==

== ENCOUNTER 2023-02-07 06:00 | Outpatient (RCR) | payer OTHER, SELFPAY | END 2023-03-03 23:59 | disposition home or self-care (01) | LOC: SPT 06:00 | PROVIDERS: Visit Provider Student in an Organized Health Care Education/Training Program | DX: Z47.89 Encounter for other orthopedic aftercare (principal) | CPT/HCPCS: 97110; G0283 ==

== ENCOUNTER → 2023-02-25 10:27 | Outpatient (BNVA) | payer OTHER, SELFPAY | PROVIDERS: Visit Provider Student in an Organized Health Care Education/Training Program | DX: Z48.89 Encounter for other specified surgical aftercare (principal) | CPT/HCPCS: 99213 ==

== ENCOUNTER 2023-05-02 12:49 | Outpatient (CLI) | payer OTHER, SELFPAY ==
--- NOTE | 2023-05-02 13:07 | MM_ITS ---
WS: [id number] BILATERAL 3D TOMOSYNTHESIS DIGITAL SCREENING MAMMOGRAPHY WITH CAD CLINICAL INFORMATION: SCREENING HISTORY: Screening mammogram. No current complaints. COMPARISON: 2021 TECHNIQUE: Bilateral CC and MLO views. FINDINGS: The breasts are composed of heterogeneous fibroglandular density tissue, which can limit the detectio n of small underlying mass lesions. No suspicious mass, asymmetry, calcifications, or architectural d istortion. No evidence of malignancy. MM/[place] [id number] IMPRESSION: BI-RADS: 1-Negative FOLLOW UP: 1 Year Follow-up Recommend return to annual screening mammography.
== END 2023-05-02 12:50 | disposition home or self-care (01) ==
LOC: RAD 13:05 → MOBLMAM 13:06
PROVIDERS: PCP Family Medicine; Visit Provider Obstetrics & Gynecology
DX: Z12.31 Encounter for screening mammogram for malignant neoplasm of breast (principal)
CPT/HCPCS: 77063; 77067

== ENCOUNTER → 2023-06-21 14:13 | Outpatient (BNVA) | payer OTHER, SELFPAY | PROVIDERS: PCP Family Medicine; Visit Provider Student in an Organized Health Care Education/Training Program | DX: M19.011 Primary osteoarthritis, right shoulder; M75.111 Incomplete rotator cuff tear or rupture of right shoulder, not specified as traumatic; M75.41 Impingement syndrome of right shoulder | CPT/HCPCS: 20610; 99213; J3301 ==

== ENCOUNTER → 2023-08-18 10:33 | Outpatient (BNVA) | payer OTHER, SELFPAY | PROVIDERS: PCP Family Medicine; Visit Provider Student in an Organized Health Care Education/Training Program | DX: M75.41 Impingement syndrome of right shoulder (principal); M75.101 Unspecified rotator cuff tear or rupture of right shoulder, not specified as traumatic; G56.01 Carpal tunnel syndrome, right upper limb; M19.011 Primary osteoarthritis, right shoulder; M19.012 Primary osteoarthritis, left shoulder | CPT/HCPCS: 99214 ==

== ENCOUNTER 2023-09-14 10:18 | Day surgery (SDC) | payer OTHER, SELFPAY ==
[2023-09-14] VITALS (10 sets, daily range): BP systolic 122–153; BP diastolic 80–94; PULSE 77–98; RESP 13–17; TEMP 36.1–36.5; O2SAT 97–100
[2023-09-14] MEDS: scopolamine 1.5 Patch 1 PATCH TRANSDERMA (11:22)
[2023-09-14] MEDS: ketorolac 30 mg/mL INJ IVP (11:23)
--- NOTE | 2023-09-14 11:23 | W.PM.OPSUD ---
Surgery/Procedure H&P Update DATE OF PROCEDURE: September 14, 2023 DATE H&P PERFORMED: 08/18/23 H&P UPDATE INFORMATION: I have reviewed H&P completed within last 30 days, I have examined patient prior to procedure and No changes to prior documentation PREOP DIAGNOSIS: Right carpal tunnel syndrome, right AC joint arthritis, cuff Impingement PRIMARY INDICATION FOR PROCEDURE: Right carpal tunnel syndrome, right shoulder AC joint arthritis, subacromial impingement syndrome with partial rotator cuff tear PLANNED PROCEDURE: Operation Date: 09/14/23 11:55 Proposed Procedures p Carpal Tunnel Release(Right) - DO gagan Fuentes Shoulder Arthroscopy: RIGHT SHOULDER DIAGNOSTIC AND SURGICAL ARTHROSCOPY(Right) - DO gagan Fuentes Subacromial Decompression(Right) - DO gagan Fuentes Rotator Cuff Repair - Arthroscopy: ROTATOR CUFF DEBRIDEMENT VERSUS REPAIR(Right) - Lm Aguero DO
[2023-09-14] MEDS: sodium chloride 0.9% 1,000 ML 30 ML IV (11:24)
[2023-09-14] MEDS: acetaminophen 1,000 MG/100 ML PIGGYBACK 400 MG IV (11:24)
--- NOTE | 2023-09-14 12:02 | ANES.PREANE2 ---
Pre-Anesthetic Assessment Height/Weight: Height 1.78 m Temp Pulse Resp BP Pulse Ox O2 Del Method 97.7 F 77 16 140/80 99 Room Air 09/14/23 10:55 09/14/23 10:55 09/14/23 10:55 09/14/23 10:55 09/14/23 10:55 09/14/23 11:07 Preop Diagnosis: Right carpal tunnel syndrome, right AC joint arthritis, cuff Impingement Operation Date: 09/14/23 11:55 Proposed Procedures p Carpal Tunnel Release(Right) - Lm Aguero DO s Shoulder Arthroscopy: RIGHT SHOULDER DIAGNOSTIC AND SURGICAL ARTHROSCOPY(Right) - DO gagan Fuentes Subacromial Decompression(Right) - DO gagan Fuentes Rotator Cuff Repair - Arthroscopy: ROTATOR CUFF DEBRIDEMENT VERSUS REPAIR(Right) - Lm Aguero DO Familial anesthetic complications: none Was Beta Nishant taken within 24 hours: N/A Was Clonidine taken within 24 hours: N/A Last intake: Intake Last Liquid Date 09/13/23 Last Liquid Time 21:00 Last Solid Date 09/13/23 Last Solid Time 20:00 Social No alcohol and No tobacco Exam alert, oriented x 3, clear to auscultation bilaterally and regular rate & rhythm Airway Submandibular: within normal limits Cervical ROM: within normal limits Mallampati: Class II Dentition: full Comments: Comments: Braces Musc/skel Osteoarthritis/DJD Neuropsych Anxiety and Depression Anesthetic Plan ASA status: 2 Anesthesia: General and Regional (specify below) (Right interscalene blk) Medications/Allergies Home Medications Medication Instructions Recorded Confirmed Last Taken Type diazepam 5 mg tablet (Valium) 5 mg PO BID PRN Anxiety #90 tabs 07/27/23 09/13/23 09/12/23 Rx fluoxetine 20 mg capsule 20 mg PO DAILY 09/13/23 09/13/23 09/13/23 History Allergies Allergy/AdvReac Type Severity Reaction Status Date / Time No Known Allergies Allergy Verified 09/13/23 09:31 Current Medications Generic Name Dose Route Start Last Admin Trade Name Freq PRN Reason Stop Dose Admin Sodium Chloride 1,000 mls @ 30 mls/hr 09/14/23 10:45 09/14/23 11:24 Sodium Chloride 0.9% IV 09/15/23 10:44 30 mls/hr .Q24H JULIANNE Administration PFSH Anesthesia Medical History Arthritis of both acromioclavicular joints Biceps tendinitis of left shoulder Impingement syndrome of both shoulders Right ovarian cyst 49-year-old female with right ovarian cyst. Ova-1 test low risk. FSH within normal limits. Patient was counseled regarding ovarian cyst. Discussed the ultrasound finding essentially benign and a follow-up ultrasound indicated in 2-3 months. There is a broad differential diagnosis of an adnexal mass in women of reproductive age. These include physiologic cysts, endometriomas, and leiomyomas. Ovarian or tubal malignant neoplasms are uncommon. Common benign neoplasms include mature teratomas and cystadenomas. Serous and mucinous cystadenomas are among the most common benign ovarian neoplasms. They are thin-walled, uni- or multilocular, and range in size from 5 to <20 cm. By the US appearance and description this is the most likey etiology. An adnexal mass this size require surgical removal for pathologic diagnosis and decrease the risk of ovarian torsion. Surgical excision is generally indicated for intervention for cysts that are complex, symptomatic, increasing in size, or persisting for more than four to six months. Family History Unknown Diabetes Family/Other Diabetes Paternal uncle Stroke Paternal uncle Patient denies medical problems Patient denies any family history of heart disease,hypercholesterolemia, thryoid problems, breast cancer, ovarian cancer, uterine cancer, colon cancer. Mother Hypertension Father Hypertension Social History Smoking and tobacco/nicotine status: never used tobacco/nicotine Alcohol intake: current Alcohol intake frequency: holidays/special occasions only Substance/Drug Use: never Additional social history: Well balanced diet Data Anesthesia Cardiac Studies: No Data to Display
--- NOTE | 2023-09-14 13:18 | ANES.PROC ---
Anesthesia Procedures Procedure/Date: 09/14/23 Nerve Block ^: Nerve Block 1: Main Anesthesia: general anesthesia Time Out Performed: Yes Consent: requested by attending/covering physician, from patient, risks and benefits reviewed and patient agrees to proceed Nerve block location: interscalene (right) Anesthesia monitors applied: pulse oximetry, EKG, BP cuff and oxygen Nerve block position: semi sitting Anesthetic Used: ropivicaine 0.5% Amount of anesthesia used (mL): 30 Ultrasound used to: recognize landmarks and visualize and ID brachial plexus Nerve Stimulator Used?: No Interscalene/Femoral BLK: 2 stimuplex 22 g needle used for position and inplane approach Injection: neg aspiration of heme Patient Tolerated Procedure: well Complications: none
[2023-09-14] MEDS: ceFAZolin 2,000 MG in sodium chloride 0.9% (plus) 50 ML 100 MG IV (14:44)
[2023-09-14] MEDS: EPINEPHrine 1 mg/mL INJ 2 MG XX (15:31)
--- NOTE | 2023-09-14 17:01 | P.BOP_ITS ---
Date of Procedure: [September 14, 2023] Surgeon: [Dr. Aguero DO] [employer] Operator(s): [Alex Aguero PA-C] Procedure(s) performed: [Right carpal tunnel release, right shoulder arthroscopy, rotator cuff debridement, subacromial decompression, AC joint resection, glenohumeral joint chondroplasty and labral debridement] Findings of the procedure(s): [Right carpal tunnel syndrome,right shoulder AC joint arthritis, subacromial impingement, partial rotator cuff tear] Estimated blood loss: [10 ml] Specimen(s) removed: [N/A] Post-operative diagnosis: [Right carpal tunnel syndrome,right shoulder AC joint arthritis, subacromial impingement, partial rotator cuff tear]
--- NOTE | 2023-09-14 17:04 | PM.OP ---
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 Right shoulder partial rotator cuff tear articular side Right shoulder AC joint arthritis RIght shoulder subacromial impingement Procedure done: Right carpal tunnel release Right shoulder diagnostic and surgical arthroscopy glenohumeral joint chondroplasty Right shoulder diagnostic and surgical arthroscopy rotator cuff debridement Right shoulder diagnostic and surgical arthroscopy subacromial decompression (acromioplasty and bursectomy) Right shoulder diagnostic and surgical arthroscopy AC joint resection (distal clavicle excision) Right Shoulder diagnostic and surgical arthroscopy with labral debridement Surgeon: Lm Aguero DO Estimated blood loss: 10mL Tourniquet: 8 minutes for Right carpal tunnel release IV fluids: 1500 mL Complications: None Findings: See operative report narrative Condition: stable Disposition: same day Procedure: Brief History: Patient been seen and worked up in the outpatient setting for Right shoulder pain and Right hand numbness and tingling. Patient's had exhaustive work-up of her C-spine's underwent injections for this which helped with her neck pain however it has not helped with her shoulder pain or numbness and tingling in her fingertips classic examination of carpal tunnel syndrome for her numbness and tingling. Patient's had MRI of the bilateral shoulders. Right shoulder MRI results are listed below.? Patient's failed conservative treatment. We talked about treatment options far as nonoperative and operative intervention..? We talked about risk benefits complication alternatives surgical nonsurgical treatment options.? Patient at this point time through shared decision making like to proceed with a Right shoulder diagnostic and surgical arthroscopy as well as while under anesthesia would like to have the Right carpal tunnel released. Through shared decision making agreed to proceed with this plan. All questions answered. Understanding her risk of surgery she agrees to proceed with surgical intervention.? All questions have been answered at this time.? Patient elects proceed with surgery and consent obtained in office. MR/MR shoulder RT wo con* [id number] IMPRESSION: 1. Moderate degenerative arthritis AC joint with mild downsloping acromion. Small amount of subacromial/subdeltoid fluid. 2. Tendinopathy in the distal supraspinatus with partial undersurface tear. This appears new from previous. No tendon retraction. 3. Rotator cuff is otherwise normal in appearance. 4. Normal biceps tendon in the bicipital groove. 5. Moderate to advanced degenerative arthritis glenohumeral joint with hypertrophic changes. 6. Biceps tendon appears intact within the bicipital groove. Biceps labral anchor appears intact. ? . Procedure: Patient seen evaluated in the preoperative holding area.? Consent reviewed and signed with patient.? Once again reviewed patient's MRI results as well as? planned surgical intervention.? Correct extremity marked.? Patient seen evaluated by anesthesia department received regional anesthesia.? Once ready for surgery was taken back to the operative suite.? Patient then subsequently underwent anesthesia per the anesthesia department was transported onto the OR table.? Patient was then placed into a lateral decubitus position with a beanbag and was appropriately secured to the bed.? All bony prominences well-padded.? Patient then had the Right upper extremity was then prepped and draped in standard orthopedic fashion.? Patient received appropriate preoperative antibiotics.? Final timeout performed. The Right upper extremity was then held in hanging from traction utilizing sterile technique.? Next started with standard diagnostic and surgical arthroscopy with posterior portal position introduced arthroscope into the glenohumeral joint.? Visualized the glenohumeral joint I then introduced a spinal needle within the rotator cuff interval to confirm appropriate anterior portal placement.? Once this was confirmed I then made my small incision and then introduced my arthroscopic shaver into the glenohumeral joint.? After thorough debridement was clearly evident patient had a intact biceps tendon and labral complex with no evidence of tearing or inflammation biceps tendon was Right alone. Was clearly evident patient had grade III chondromalacia in the glenohumeral joint most pronounced on the humeral head. As result arthroscopic shaver and thermal wand introduced and a chondroplasty of the glenohumeral joint was performed to stable articular tissue. Visualization of the labrum was grossly intact with tearing and fraying throughout. Thermal wand and shaver to debride labrum and wand was used to seal up the frayed edges of the labrum. Next Axillary recess was free from loose bodies.? ?Next a visualized the rotator cuff superiorly and there was found negative escape bubble sign as bubbles resided without perforating into the subacromial space however the undersurface articular side showed significant tearing consistent with a partial articular surface rotator cuff tear and used arthroscopic shaver and performed a rotator cuff debridement of the undersurface at this time. I marked this location with a spinal needle for evaluation of the subacromial space. ? This completed my work within the glenohumeral joint all fluid was suctioned free of the joint.? ?Next I reintroduced the arthroscope posteriorly.? And went to the subacromial space.? I established my lateral working portal.? Thermal wand was then introduced laterally and then I subsequently performed extensive bursectomy of the subacromial space.? Patient had pronounced anterior bone spur.? At this point time I proceeded with my AC joint resection thermal wand was used and track to the anterior edge of the acromion and then tracked all the way to the AC joint.? Once identified the AC joint this was very arthritic in nature.? Thermal wand was placed anteriorly to establish appropriate plane for AC joint resection.? Once appropriate margins and anterior inferior and anterior capsule was released I then introduced arthroscopic shaver and a bur and performed AC joint resection of both the acromion to coplane at the AC joint and a distal clavicle resection was then performed totaling 1 cm in size and was confirmed.? This completed my AC joint resection and I then introduced the arthroscopic shaver laterally while continuing to view posteriorly.? I then performed an acromioplasty to complete my subacromial decompression prior to fixing the rotator cuff tear.? ?Next the arthroscopic shaver was then introduced laterally at this point time completed my subacromial bursectomy With complete bursectomy performed I then utilized the arthroscopic bur to perform acromioplasty and coplaning of the anterior bone spur. Next I then visualized the rotator cuff and took the shoulder through range of motion which was found to be intact. I then switched my arthroscopic viewing portal through the lateral portal to confirm appropriate acromioplasty and finalized touches were then performed of the acromioplasty and bursectomy at that time. Once again visualize rotator cuff and this was intact. This completed my diagnostic and surgical arthroscopy of the Right shoulder. All fluid was suctioned from the shoulder.? All instruments were removed.? The lateral incision was then closed with nylon stitches.? As well as the portal sites closed with portal nylon stitches.? Xeroform 4 x 4's ABD and tape was then applied to the Right shoulder. All drapes were completely taken down. At this point in time an armboard was applied to the Right arm with plan for proceeding with Right carpal tunnel release. Beanbag was deflated patient was laid in supine position Right arm to the armboard. Patient bed was then rotated a nonsterile tourniquet applied to the Right upper arm. Patient's Right upper extremity was then prepped and draped in standard orthopedic fashion.? Final timeout performed.? Patient received appropriate preoperative antibiotics. Under sterile aseptic technique patient received local anesthesia over the preplanned carpal tunnel incision site.? Esmarch tourniquet was used exsanguinate the Right upper extremity and tourniquet was insufflated to 250 mmHg. A standard mini open carpal tunnel incision was made.? Starting distally at Calles's cardinal line in line with the fourth ray extending proximally distal to the wrist crease.? Sharp scalpel incision was made through skin and subcutaneous tissue.? Self-retaining retractor was placed and the palmar fascia was identified.? This was then split longitudinally and direct visualization of the transverse carpal ligament was then made.? I then utilizing scalpel feathered through the transverse carpal ligament until I entered the floor of the transverse carpal tunnel ligament into the carpal tunnel.? Next I switched to dissection scissors and completed my release of the transverse carpal ligament distally with care to protect the recurrent motor branch.? I completely released into the palmar fat and until no entrapment was noted distally.? Care was made to protect the superficial palmar arch during my distal dissection.? Next I then placed a Stewardson underneath the transverse carpal tunnel ligament to protect the contents of the carpal tunnel and subsequently utilizing dissection scissors under loupe magnification completely released the transverse carpal ligament proximally into the median antebrachial fascia.? Care was made to protect the palmar cutaneous branch by keeping my scissors curved ulnarly.? Once completely released, I then placed my Stewardson and had appropriate decompression of the carpal tunnel proximally as well as distally.? I then inspected the contents of the carpal tunnel which showed an hourglass shape of the median nerve showing its compression.? No masses were noted.? Tendons appeared healthy.? Wound was then thoroughly irrigated.? Tourniquet deflated.? Hemostasis satisfactory with bipolar electrocautery.? I then closed the incision with interrupted nylon stitches.? Xeroform 4 x 4's and a bulky soft dressing was applied to the Right upper extremity as well as sling to the Right shoulder.? Patient was then awakened from anesthesia and taken to PACU in stable condition.? Patient tolerated procedure without complications. Disposition: Patient taken to PACU in stable condition recovering well.? Dressing clean dry and intact.? Patient will receive appropriate discharge instructions as well as pain medication postoperatively.? Patient to follow-up with me in the office in 2 weeks.? They understand they may be weightbearing as tolerated to the Right upper extremity. Sling for comfort..? Patient should keep incision clean dry and intact.? Patient understands if any questions or concerns he may contact the office.
--- NOTE | 2023-09-14 17:05 | PM.PACU ---
PACU note Narrative: Patient is a 53-year-old female just underwent right carpal tunnel release and right shoulder arthroscopy. Patient transferred to PACU in stable condition. Pain is well controlled. shoulder Dressing on , dry and in place. Patient's operative arm is in a shoulder sling. Patient's dressing on right hand is dry and intact. Patient is awake and alert and able to respond to my questions accordingly. Patient's fingers are warm with good perfusion. Normal cap refill under 2 seconds. Unable to assess further range of motion in arm due to sling. Unable to assess sensation due to residual localized anesthetic. Exam: awake Disposition: discharged
--- NOTE | 2023-09-14 17:39 | ANE.PACU2 ---
Inpatient post-anesthesia follow up: Airway intact: Yes Vital signs: Temperature 97.4 F Pulse Rate 93 Respiratory Rate 16 Blood Pressure 139/86 Pulse Oximetry 99 Oxygen Delivery Me thod Room Air Oxygen Flow Rate 6 Fraction of Inspir ed Oxygen Hydration adequate: Yes Nausea and vomiting: No Pain level: 1 Mental status: Baseline
[2023-09-14] MEDS: HYDROcodone-acetaminophen 5-325 mg Tablet 1 TAB PO (17:55)
== END 2023-09-14 18:15 | disposition home or self-care (01) ==
PROVIDERS: PCP Family Medicine; Visit Provider Student in an Organized Health Care Education/Training Program
PROC: (CPT 64721; principal; 2023-09-14 11:45)
PROC: (CPT 29805; 2023-09-14 11:45)
PROC: (CPT 29826; 2023-09-14 11:45)
PROC: (CPT 29827; 2023-09-14 11:45)
PROC: (CPT 23120; 2023-09-14 11:45)
DX: G56.01 Carpal tunnel syndrome, right upper limb (principal); M19.011 Primary osteoarthritis, right shoulder; M75.41 Impingement syndrome of right shoulder; M94.211 Chondromalacia, right shoulder; M75.102 Unspecified rotator cuff tear or rupture of left shoulder, not specified as traumatic
CPT/HCPCS: 29823; 29824; 64721; J0131; J0171; J0690; J1100; J1885; J2250; J2405; J2704; J2795; J3010; J7030

== ENCOUNTER → 2023-10-06 09:58 | Outpatient (BNVA) | payer OTHER, SELFPAY | PROVIDERS: PCP Family Medicine; Visit Provider Student in an Organized Health Care Education/Training Program | DX: Z98.890 Other specified postprocedural states (principal) | CPT/HCPCS: 99024; 99213 ==

== ENCOUNTER 2023-10-13 09:28 | Outpatient (RCR) | payer OTHER, SELFPAY | END 2023-11-09 23:59 | disposition home or self-care (01) | LOC: SPT 09:28 | PROVIDERS: PCP Family Medicine; Visit Provider Student in an Organized Health Care Education/Training Program | DX: Z98.890 Other specified postprocedural states (principal) | CPT/HCPCS: 97110; 97140; 97162 ==

== ENCOUNTER 2023-11-10 06:00 | Outpatient (RCR) | payer OTHER, SELFPAY | END 2023-12-08 23:59 | disposition home or self-care (01) | LOC: SPT 06:00 | PROVIDERS: PCP Family Medicine; Visit Provider Student in an Organized Health Care Education/Training Program | DX: Z98.890 Other specified postprocedural states (principal) | CPT/HCPCS: 97110 ==

== ENCOUNTER → 2023-11-15 09:51 | Outpatient (BNVA) | payer OTHER, SELFPAY | PROVIDERS: PCP Family Medicine; Visit Provider Student in an Organized Health Care Education/Training Program | DX: Z98.890 Other specified postprocedural states (principal) | CPT/HCPCS: 99024; 99213 ==

== ENCOUNTER 2023-12-09 06:00 | Outpatient (RCR) | payer OTHER, SELFPAY | END 2024-01-08 23:59 | disposition home or self-care (01) | LOC: SPT 06:00 | PROVIDERS: PCP Family Medicine; Visit Provider Student in an Organized Health Care Education/Training Program | DX: Z98.890 Other specified postprocedural states (principal) | CPT/HCPCS: 97110 ==

== ENCOUNTER → 2023-12-23 08:04 | Outpatient (BNVA) | payer OTHER, SELFPAY | PROVIDERS: PCP Family Medicine; Visit Provider Physician Assistant | DX: Z98.890 Other specified postprocedural states | CPT/HCPCS: 73030; 99213 ==

== ENCOUNTER 2024-01-09 06:00 | Outpatient (RCR) | payer OTHER, SELFPAY | END 2024-01-12 23:59 | disposition home or self-care (01) | LOC: SPT 06:00 | PROVIDERS: PCP Family Medicine; Visit Provider Student in an Organized Health Care Education/Training Program | DX: Z98.890 Other specified postprocedural states (principal) | CPT/HCPCS: 97110 ==

== ENCOUNTER 2024-05-29 08:34 | Outpatient (CLI) | payer OTHER, SELFPAY ==
--- NOTE | 2024-05-29 08:38 | MM_ITS ---
WS: [id number] SCREENING DIGITAL TOMOSYNTHESIS MAMMOGRAM WITH CAD HISTORY: SCREENING COMPARISON: 05/02/2023, 03/10/2022 Bilateral CC and MLO with tomosynthesis views submitted. Synthetic mammography reviewed. Computer aid ed detection analyzed. Breast composition: There are scattered areas of fibroglandular density. No suspicious masses, microc alcifications or architectural distortion. MM/[place] [id number] IMPRESSION: BI-RADS: 1-Negative FOLLOW UP: 1 Year Follow-up
== END 2024-05-29 08:35 | disposition home or self-care (01) ==
LOC: RAD 08:34
PROVIDERS: PCP Family Medicine; Visit Provider Family Medicine
DX: Z12.31 Encounter for screening mammogram for malignant neoplasm of breast (principal)
CPT/HCPCS: 77063; 77067

== ENCOUNTER → 2024-08-21 10:08 | Outpatient (BNVA) | payer OTHER, SELFPAY | PROVIDERS: PCP Family Medicine; Visit Provider Family Medicine | DX: R59.1 Generalized enlarged lymph nodes (principal) | CPT/HCPCS: 85025; 86140 ==

== ENCOUNTER 2024-09-27 12:24 | Emergency (ER) | payer OTHER, SELFPAY ==
[2024-09-27 12:28] VITALS: BP 149/82; PULSE 79; RESP 18; TEMP 36.7; O2SAT 100
--- NOTE | 2024-09-27 12:41 | ED_ITS ---
HPI - General Adult 2 General: Chief complaint: Dizziness Stated complaint: anxiety Time Seen by Provider: 09/27/24 12:36 History of Present Illness: Patient presents to the ER after she bent over to pick something up and stood up she became dizzy. She reports still being dizzy. This made her anxious and she went into panic attacks her bilateral arm started tingling. She feels improved but not back to normal yet. Patient states her doctor just increased her Prozac from 20 to 40 mg a couple weeks ago. Related Data Home Medications Medication Instructions Recorded Confirmed fluoxetine 40 mg capsule 40 mg PO DAILY 09/27/24 09/27/24 Previous Rx's Medication Instructions Recorded diclofenac sodium 1 % topical gel 4 g topical QID #100 grams 12/23/23 (Voltaren Arthritis Pain) baclofen 10 mg tablet 10 mg PO TID PRN spasms #60 tabs 08/21/24 diazepam 5 mg tablet (Valium) 5 mg PO BID PRN Anxiety #90 tabs 08/21/24 Allergies Allergy/AdvReac Type Severity Reaction Status Date / Time No Known Allergies Allergy Verified 12/23/23 08:09 Review of Systems 2 General: Reports: 10 or more systems reviewed and unremarkable except in HPI and below PFSH ED 2 PFSH: Medical History Biceps tendinitis of left shoulder Arthritis of both acromioclavicular joints Impingement syndrome of both shoulders Right ovarian cyst 49-year-old female with right ovarian cyst. Ova-1 test low risk. FSH within normal limits. Patient was counseled regarding ovarian cyst. Discussed the ultrasound finding essentially benign and a follow-up ultrasound indicated in 2-3 months. There is a broad differential diagnosis of an adnexal mass in women of reproductive age. These include physiologic cysts, endometriomas, and leiomyomas. Ovarian or tubal malignant neoplasms are uncommon. Common benign neoplasms include mature teratomas and cystadenomas. Serous and mucinous cystadenomas are among the most common benign ovarian neoplasms. They are thin-walled, uni- or multilocular, and range in size from 5 to <20 cm. By the US appearance and description this is the most likey etiology. An adnexal mass this size require surgical removal for pathologic diagnosis and decrease the risk of ovarian torsion. Surgical excision is generally indicated for intervention for cysts that are complex, symptomatic, increasing in size, or persisting for more than four to six months. Family History Unknown Diabetes Family/Other Diabetes Paternal uncle Stroke Paternal uncle Patient denies medical problems Patient denies any family history of heart disease,hypercholesterolemia, thryoid problems, breast cancer, ovarian cancer, uterine cancer, colon cancer. Mother Hypertension Father Hypertension Social History Smoking and tobacco/nicotine status: unknown if used tobacco/nicotine Alcohol intake: current Alcohol intake frequency: holidays/special occasions only Substance/Drug Use: never Additional social history: Well balanced diet Physical Exam 2 Const: COMMON NORMALS: no acute distress, average body habitus, patient oriented x3, no limitations, healthy appearing, alert and well nourished HENMT: COMMON NORMALS: normocephalic, atraumatic, hearing grossly normal bilaterally, external ears normal, Normal external nose present and moist oral mucous membranes HEAD & SCALP: normocephalic and atraumatic NOSE: Normal external nose present EXTERNAL EAR: Yes external ears normal Neck/C-Spine: COMMON NORMALS: no JVD Chest: COMMONS NORMALS: normal inspection of the chest and normal palpation of entire chest wall Resp: COMMON NORMALS: normal respiratory effort, No retractions, No use of accessory muscles and clear to auscultation bilaterally AUSCULTATION: clear to auscultation bilaterally Cardio: COMMON NORMALS: no JVD, regular rate, regular rhythm, S1 normal heart sound present, S2 normal heart sound present, No gallops present (Cardio), No clicks present (Cardio), No murmurs present (Cardio) and No rub (Cardio) R ATE: regular rate RHYTHM: regular rhythm HEART SOUNDS: S1 normal heart sound present and S2 normal heart sound present GI: COMMON NORMALS: Normal to inspection, nondistended, normoactive bowel sounds present, Soft to palpation, non-tender, No hepatosplenomegaly present and no masses PALPATION: Yes Soft to palpation and Yes No hepatosplenomegaly present Neuro: COMMON NORMALS: patient oriented x3 SENSORIUM/ORIENTATION: Yes alert Course 2 Vital Signs: Vital signs: Vital Signs Temperature 98.1 F 09/27/24 12:28 Pulse Rate 72 09/27/24 14:03 Respiratory Rate 18 12/19/24 12:28 Blood Pressure 150/87 09/27/24 14:03 Pulse Oximetry 99 09/27/24 14:03 Oxygen Delivery Me thod Room Air 09/27/24 13:40 MDM - General Adult Medical Decision Making Lab work was obtained as well as EKG, chest x-ray, all essentially benign. Patient was given 50 mg of meclizine which seemed to help her dizziness. Patient's potassium was low at 3.0. Medical Records I reviewed the patient's medical records. Lab Data I reviewed the patient's lab results. 09/27/24 11:57 09/27/24 11:57 Radiology Impressions Chest X-Ray 09/27/24 12:42 Impression: Atherosclerosis. Laboratory Results WBC 5.88 10^3/uL (3.29-11.43) 09/27/24 11:57 RBC 5.18 10^6/uL (3.85-5.65) 09/27/24 11:57 Hgb 15.10 g/dL (11.27-16.99) 09/27/24 11:57 Hct 44.8 % (36-47) 09/27/24 11:57 MCV 86.5 fl (85-98) 09/27/24 11:57 MCH 29.2 pg (27-33) 09/27/24 11:57 MCHC 33.7 g/dL (30-55) 09/27/24 11:57 RDW 12.5 % (12.1-15.1) 09/27/24 11:57 Plt Count 231 10^3/cmm (157-399) 09/27/24 11:57 MPV 11.4 fL (7.4-10.4) H 09/27/24 11:57 Neut % (Auto) 54.7 % 09/27/24 11:57 Lymph % (Auto) 37.1 % 09/27/24 11:57 [place] % (Auto) 6.8 % 09/27/24 11:57 Eos % (Auto) 0.9 % 09/27/24 11:57 Baso % (Auto) 0.3 % 09/27/24 11:57 Neut # (Auto) 3.22 10^3/uL (1.8-7.7) 09/27/24 11:57 Lymph # (Auto) 2.2 10^3/uL (0.8-4.8) 09/27/24 11:57 [place] # (Auto) 0.4 10^3/uL (0.2-0.9) 09/27/24 11:57 Eos # (Auto) 0.1 10^3/uL (0.0-0.8) 09/27/24 11:57 Baso # (Auto) 0.0 10^3/uL (0.0-0.1) 09/27/24 11:57 Nucleated RBC % (auto) 0 % 09/27/24 11:57 Nucleated RBCs # 0.0 /100WBC 09/27/24 11:57 Sodium 140 mmol/L (136-145) 09/27/24 11:57 Potassium 3.0 mmol/L (3.5-5.1) L 09/27/24 11:57 Chloride 100 mmol/L (98-107) 09/27/24 11:57 Carbon Dioxide 28 mmol/L (22-29) 09/27/24 11:57 Anion Gap 15.0 (5-19) 09/27/24 11:57 BUN 15 mg/dL (6-20) 09/27/24 11:57 Creatinine 0.9 mg/dL (0.5-0.9) 09/27/24 11:57 GFR Calculation 64.8 mL/min (90-130) L 09/27/24 11:57 Glucose 113 mg/dL (65-115) 09/27/24 11:57 Calculated Osmolality 292 mOsm/kg (285-295) 09/27/24 11:57 Calcium 10.2 mg/dL (8.5-10.5) 09/27/24 11:57 Magnesium 2.1 mg/dL (1.7-2.3) 09/27/24 11:57 Total Bilirubin 0.7 mg/dL (0.15-1.2) 09/27/24 11:57 AST 18 U/L (0-32) 09/27/24 11:57 ALT 15 U/L (0-33) 09/27/24 11:57 Alkaline Phosphatase 107 U/L (35-105) H 09/27/24 11:57 Total Protein 8.0 g/dL (6.6-8.7) 09/27/24 11:57 Albumin 5.0 g/dL (3.5-5.2) 09/27/24 11:57 Globulin 3.0 g/dL (1.3-4.6) 09/27/24 11:57 Urine Color Yellow (Yellow) 09/27/24 13:20 Urine Appearance Clear (CLEAR) 09/27/24 13:20 Urine pH 7.0 (5-7) 09/27/24 13:20 Ur Specific [place] 1.006 (1.005-1.030) 09/27/24 13:20 Urine Protein Negative (Negative) 09/27/24 13:20 Urine Glucose (UA) Negative (Normal) 09/27/24 13:20 Urine Ketones Negative (Negative) 09/27/24 13:20 Urine Blood Negative (Negative) 09/27/24 13:20 Urine Nitrate Negative (Negative) 09/27/24 13:20 Urine Bilirubin Negative (Negative) 09/27/24 13:20 Urine Urobilinogen 0.2 mg/dL (Negative) 09/27/24 13:20 Ur Leukocyte Esterase Negative (Negative) 09/27/24 13:20 Urine RBC 0-2 /hpf (0-2) 09/27/24 13:20 Urine WBC 0-5 /hpf (0-5) 09/27/24 13:20 Ur Squamous Epith Cells 0-5 /hpf (0-5) 09/27/24 13:20 Amorphous Sediment Not Reportable 09/27/24 13:20 Urine Bacteria None seen /hpf (NONE) 09/27/24 13:20 Hyaline Casts 0-4 /lpf H 09/27/24 13:20 All radiology interpretation(s) finalized by discharge Discharge Plan Discharge Patient Disposition: Home Clinical Impression: Anxiety, Vertigo, Acute hypokalemia Condition: Stable Prescriptions: No Action diazepam [Valium] 5 mg tablet 5 mg PO BID PRN (Reason: Anxiety) Qty: 90 3RF baclofen 10 mg tablet 10 mg PO TID PRN (Reason: spasms) Qty: 60 2RF diclofenac sodium [Voltaren Arthritis Pain] 1 % gel 4 g topical QID Qty: 100 0RF Rx Instructions: apply to single knee, ankle, foot; for foot includes sole/toes/top of foot fluoxetine 40 mg capsule 40 mg PO DAILY Discharge Orders: Discharge ED (Routine); Ordered 09/27/24 Ordered By: Stanton Mancilla Referrals: Klayan Horton MD [Primary Care Provider] - 1 week Patient Instructions: Vertigo, Anxiety (ED), Hypokalemia Activity Restrictions/Additional Instructions: Your workup in ER did not show any acute etiology of your symptomatology. Your potassium was low. Please watch your diet and eat high potassium foods. Please follow-up with your family practitioner within next 7 to 10 days for further evaluation and treatment. Coding Level of Care Code ED Sprinkler Tender for [place] [place]
--- NOTE | 2024-09-27 12:42 | ECG_ITS ---
[facility] Test Date: 2024-09-27 Pat Name: Candice Murrell Department: Room: Gender: Female Canal Tender: : 1970 Requested By: Stanton Mancilla Order Number: [id number] [place] MD: Tanika Ramon M.D. Measurements Intervals [place] Rate: 71 P: 52 TN: 148 QRS: 65 QRSD: 91 T: 47 QT: 403 QTc: 439 Interpretive Statements SINUS RHYTHM Compared to ECG 03/13/2020 11:35:55 Sinus arrhythmia no longer present Electronically Signed On 09-27-2024 23:54:51 CHURCH SUPERVISOR by Tanika Ramon M.D. [email or web address]
--- NOTE | 2024-09-27 12:42 | XR_ITS ---
WS: [id number] Portable AP upright chest, 09/27/2024 Clinical Data: dizziness, htn Comparison: Two-view chest, 05/31/2006 Findings: No nodules, masses or effusions are seen. The heart is normal. The pulmonary vascularity is not increased. No pneumonia or pneumothorax is seen. The aortic arch and descending thoracic aorta s how calcification and tortuosity. XR/XR chest 1V portable [id number] Impression: Atherosclerosis.
[2024-09-27 13:12] LABS: Basophils % 0.3 %; Eosinophils # 0.1 10^3/uL (0.0-0.8); Eosinophils % 0.9 %; Hematocrit 44.8 % (36-47); Lymphocytes # 2.2 10^3/uL (0.8-4.8); Lymphocytes % 37.1 %; Mean Corpuscular HGB Conc 33.7 g/dL (30-55); Mean Corpuscular Hemoglobin 29.2 pg (27-33); Mean Corpuscular Volume 86.5 fl (85-98); Mean Platelet Volume 11.4 fL (7.4-10.4); Monocytes # 0.4 10^3/uL (0.2-0.9); Monocytes % 6.8 %; Neutrophils # 3.22 10^3/uL (1.8-7.7); Neutrophils % 54.7 %; Nucleated Red Blood Cells % 0 %; Platelet Count 231 10^3/cmm (157-399); Red Blood Count 5.18 10^6/uL (3.85-5.65); Red Cell Distribution Width 12.5 % (12.1-15.1); White Blood Count 5.88 10^3/uL (3.29-11.43)
[2024-09-27 13:26] LABS: Alanine Aminotransferase 15 U/L (0-33); Alkaline Phosphatase 107 U/L (35-105); Aspartate Amino Transferase 18 U/L (0-32); Blood Urea Nitrogen 15 mg/dL (6-20); Calcium 10.2 mg/dL (8.5-10.5); Carbon Dioxide 28 mmol/L (22-29); Chloride 100 mmol/L (98-107); Glomerular Filtration Rate 64.8 mL/min (90-130); Glucose 113 mg/dL (65-115); Magnesium 2.1 mg/dL (1.7-2.3); Osmolality Calculated 292 mOsm/kg (285-295); Sodium 140 mmol/L (136-145); Total Bilirubin 0.7 mg/dL (0.15-1.2)
[2024-09-27 13:37] LABS: Bilirubin Urine Negative (Negative); Blood Urine Negative (Negative); Glucose Urine UA Negative (Normal); Ketones Urine Negative (Negative); Leukocyte Esterase Urine Negative (Negative); Nitrate Urine Negative (Negative); Protein Urine Negative (Negative); Specific Gravity, Urine 1.006 (1.005-1.030); Urine Appearance Clear (CLEAR); Urine Color Yellow (Yellow); Urobilinogen Urine 0.2 mg/dL (Negative)
[2024-09-27 13:39] LABS: Add Urine Microscopic? YES; Bacteria Urine None Seen /hpf; Hyaline Casts Urine 0-4 /lpf; RBC Urine 0-2 /hpf (0-2); Squamous Epithelial Cell Urine 0-5 /hpf (0-5); WBC Urine 0-5 /hpf (0-5)
[2024-09-27 13:40] VITALS: BP 143/92; O2SAT 99
[2024-09-27 14:03] VITALS: BP 150/87; PULSE 72; O2SAT 99
[2024-09-27] MEDS: meclizine 25 mg tablet 50 MG PO (14:43)
[2024-09-27 15:31] VITALS: BP 133/91; PULSE 73; O2SAT 98
== END 2024-09-27 15:31 | disposition home or self-care (01) ==
PROVIDERS: Emergency Provider Emergency Medicine; PCP Family Medicine
DX: F41.9 Anxiety disorder, unspecified (principal); R42 Dizziness and giddiness; E87.6 Hypokalemia
CPT/HCPCS: 71045; 80053; 81001; 83735; 85025; 93005; 99285; J8597

== ENCOUNTER 2025-06-04 07:17 | Outpatient (CLI) | payer OTHER, SELFPAY ==
--- NOTE | 2025-06-04 07:22 | CT_ITS ---
WS: [id number] CT NECK WITH CONTRAST HISTORY: evaluate possible left post cervical lymph nodes. Palpable area LEFT neck. TECHNIQUE: Contiguous 2 mm axial images are performed through the neck with intravenous contrast. Sagittal and coronal reformats are also submitted. All CT scans at [facility] use at least one of these dose optimization techniques: automated exposure control; mA and/or kV adjustment per patient size (includes targeted exams where dose is matched to clinical indication); or iterative reconstruction. CONTRAST: CONTRAST: Omnipaque 350; 100 mL IV. DLP: 264.29 mGy.cm COMPARISON: None available. Marker is placed in the LEFT neck at the palpable site. There is no mass or abnormality associated with the marker placed on the palpable nodule. There is a normal-appearing sternocleidomastoid muscle. There is a small superficial vein. There is no adenopathy. Symmetric appearance of the soft tissues. Nasopharynx, oropharynx, hypopharynx and larynx are unremarkable. No soft tissue masses or abnormal enhancement. Torus tubarius and fossa of Rosenmuller and parapharyngeal fat are normal. No significant lymphadenopathy is identified. Tiny posterior RIGHT thyroid nodule. No parotid gland mass. No osseous abnormalities. Visualized portions of the skull base demonstrate no abnormalities. Orbits and globes are within normal limits. No soft tissue masses. Bovine arch. Visualized paranasal sinuses and mastoid air cells are normal. Lung apices are clear. CT/CT neck w con* [id number] IMPRESSION: 1. No mass or adenopathy associated with the palpable nodule along the LEFT ne ck. 2. Unremarkable CT neck. No suspicious masses or adenopathy.
[2025-06-04] MEDS: iohexol 350 mg/mL 500 mL Btl (per mL) IV (07:32)
== END 2025-06-04 07:18 | disposition home or self-care (01) ==
LOC: RAD 07:17
PROVIDERS: PCP Family Medicine; Visit Provider Family Medicine
DX: R59.0 Localized enlarged lymph nodes (principal)
CPT/HCPCS: 70491